=== PATIENT | male | born 1995 | race Caucasian/White ===

== ENCOUNTER 2024-08-23 19:40 | Observation (INO) | payer OTHER ==
--- NOTE | 2024-08-23 19:57 | ED ---
General Adult HPI - General Source: patient, family, EMS, RN notes reviewed Mode of arrival: EMS Limitations: altered mental status <Diana Subramanian - Last Filed: 08/23/24 23:11> <Cher Moe - Last Filed: 08/29/24 19:47> - General Chief complaint: Altered Mental Status Stated complaint: AMS Time Seen by Provider: 08/23/24 19:56 - History of Present Illness Initial comments: This is a 28-year-old male with history of transgender reconstructive surgery and borderline personality disorder presenting to emergency department via EMS with concern of possible overdose. History was largely obtained from patient's at bedside due to patient being on cooperative with questioning. at bedside states that the patient was alone in the house between the hours of 10 AM and 1800 p.m. this afternoon. When arrived back to the house she was concerned that there was a trail of urine on the ground and on the couch where the patient was laying and is patient has a history of urinating himself while he is severely intoxicated. Patient does have a history of alcohol abuse and is currently on Vivitrol injection. Patient is denying suicidal homicidal ideations. not cooperative with questioning, stating, 'i just want to go home' (Diana Subramanian) - Related Data Home Medications Medication Instructions Recorded Confirmed ALPRAZolam [Xanax] 0.25 mg PO HS PRN 08/24/24 08/24/24 Eszopiclone [Lunesta] 3 mg PO HS 08/24/24 08/24/24 Minocycline [Minocin] 50 mg PO Q12HR 08/24/24 08/24/24 Naltrexone HCl [Revia] 50 mg PO DAILY 08/24/24 08/24/24 QUEtiapine [SEROquel] 100 mg PO DAILY 08/24/24 08/24/24 QUEtiapine [SEROquel] 200 mg PO HS 08/24/24 08/24/24 Testosterone Cypionate 100 mg IM FR 08/24/24 08/24/24 [Depo-Testosterone] cloNIDine HCL [Catapres] 0.1 mg PO DAILY 08/24/24 08/24/24 hydrOXYzine HCL [Atarax] 50 mg PO TID 08/24/24 08/24/24 lamoTRIgine [LaMICtal] 25 mg PO HS 08/24/24 08/24/24 traZODone HCL 150 mg PO HS 08/24/24 08/24/24 Allergies Allergy/AdvReac Type Severity Reaction Status Date / Time No Known Allergies Allergy Verified 08/24/24 11:47 Review of Systems ROS Other: All systems not noted in ROS Statement are negative. <Diana Subramanian - Last Filed: 08/23/24 23:11> ROS Other: All systems not noted in ROS Statement are negative. <Cher Moe - Last Filed: 08/29/24 19:47> ROS Statement: Those systems with pertinent positive or pertinent negative responses have been documented in the HPI. General Exam Limitations: altered mental status General appearance: alert, appears intoxicated Head exam: Present: atraumatic, normocephalic, normal inspection Eye exam: Present: normal appearance, PERRL, EOMI. Absent: scleral icterus, con junctival injection, periorbital swelling Respiratory exam: Present: normal lung sounds bilaterally. Absent: respiratory distress, wheezes, rales, rhonchi, stridor Cardiovascular Exam: Present: regular rate, normal rhythm, normal heart sounds. Absent: systolic murmur, diastolic murmur, rubs, gallop, clicks GI/Abdominal exam: Present: soft, normal bowel sounds. Absent: distended, tenderness, guarding, rebound, rigid Extremities exam: Present: normal inspection, full ROM, normal capillary refill. Absent: tenderness, pedal edema, joint swelling, calf tenderness Back exam: Present: normal inspection Psychiatric exam: Present: anxious, flat affect. Absent: normal affect, normal mood <Diana Subramanian - Last Filed: 08/23/24 23:11> Course Vital Signs 08/23/24 08/24/24 19:43 00:34 Temperature 97.6 F Pulse Rate 112 H 128 H Respiratory 18 18 Rate Blood Pressure 150/104 151/107 O2 Sat by Pulse 98 100 Oximetry Medical Decision Making - Lab Data Result diagrams: 08/23/24 21:26 08/23/24 21:26 <Diana Subramanian - Last Filed: 08/23/24 23:11> - Lab Data Result diagrams: 08/23/24 21:26 08/23/24 21:26 <Cher Moe - Last Filed: 08/29/24 19:47> - Medical Decision Making Was pt. sent in by a medical professional or institution (, [facility], [facility], urgent care, hospital, or penitentiary...) When possible be specific @ -No Did you speak to anyone other than the patient for history (EMS, parent, family, police, friend...)? What history was obtained from this source @ -Spoke to patient's mother at bedside states that patient has a history of alcohol abuse and she is concerned for his wellbeing. Did you review nursing and triage notes (agree or disagree)? Why? @ -I reviewed and agree with nursing and triage notes Were old charts reviewed (outside hosp., previous admission, EMS record, old EKG, old radiological studies, urgent care reports/EKG's, penitentiary records)? Report findings @ -No old charts were reviewed Differential Diagnosis (chest pain, altered mental status, abdominal pain women, abdominal pain men, vaginal bleeding, weakness, fever, dyspnea, syncope, headache, dizziness, GI bleed, back pain, seizure, CVA, palpatations, mental h ealth, musculoskeletal)? @ -Differential Altered Mental Status: Hypoglycemia, DKA, hypercapnia, ETOH, overdose, CO poisoning, trauma, myxedema coma, HTN encephalopathy, infection, encephalitis, psychosis, intercranial hemorrhage, hepatic encephalopathy, meningitis, CVA, this is not meant to be an all-inclusive list EKG interpreted by me (3pts min.). @ -None X-rays interpreted by me (1pt min.). @ -None done CT interpreted by me (1pt min.). @ -None done U/S interpreted by me (1pt. min.). @ -None done What testing was considered but not performed or refused? (CT, X-rays, U/S, labs)? Why? @ -None What meds were considered but not given or refused? Why? @ -None Did you discuss the management of the patient with other professionals (professionals i.e. [facility], [facility], lab, RT, psych nurse, director of social work, criminal justice lawyer, teacher, president and chief commercial officer, director of casework department)? Give summary @ -Spoke with Kristin with [facility] was agreed to admit the patient. Was smoking cessation discussed for >3mins.? @ -No Was critical care preformed (if so, how long)? @ -No Were there social determinants of health that impacted care today? How? (Homelessness, low income, unemployed, alcoholism, drug addiction, tra nsportation, low edu. Level, literacy, decrease access to med. care, fci, rehab)? @ -No Was there de-escalation of care discussed even if they declined (Discuss DNR or withdrawal of care, Hospice)? DNR status @ -No What co-morbidities impacted this encounter? (DM, HTN, Smoking, COPD, CAD, Cancer, CVA, ARF, Chemo, Hep., AIDS, mental health diagnosis, sleep apnea, morbid obesity)? @ -None Was patient admitted / discharged? Hospital course, mention meds given and route, prescriptions, significant lab abnormalities, going to OR and other pertinent info. @ -Admitted. 28-year male presenting to the emergency department via EMS with at bedside with concerns for altered mental status. Initially patient is noncooperative and appears intoxicated continuously stating that he just wants to go home. Laboratory testing including CBC and CMP unremarkable. Salicylates and acetaminophen toxicology undetected. Patient serum alcohol level was elevated at 371 correlating to the time till sober and 15 hours. On reevaluation after laboratory testing has resulted patient is cooperative stating that he does have a history of alcohol abuse and recently had a relapse. He states that he drank approximately a pint today. Denies drug use. States that he follows with a psychiatrist and has a safety plan at home. Will be admitted to internal medicine with psychiatry on consult. [facility] protocol placed. Case discussed with Dr. Moe Undiagnosed new problem with uncertain prognosis? @ -No Drug Therapy requiring intensive monitoring for toxicity (Heparin, Nitro, Insulin, Cardizem)? @ -No Were any procedures done? @ -No Diagnosis/symptom? @ -Alcohol abuse/alcohol intoxication Acute, or Chronic, or Acute on Chronic? @ -Acute Uncomplicated (without systemic symptoms) or Complicated (systemic symptoms)? @ -Complicated Side effects of treatment? @ -No Exacerbation, Progression, or Severe Exacerbation? @ -No Poses a threat to life or bodily function? How? (Chest pain, USA, SC, pneumonia, PE, COPD, DKA, ARF, appy, cholecystitis, CVA, Diverticulitis, Homicidal, Suicidal, threat to staff... and all critical care pts) @ -No (Diana Subramanian) - Lab Data Lab Results 08/23/24 08/23/24 08/23/24 Range/Units 21:26 21:26 22:47 WBC 6.09 (4.50-10.00) 10*3/uL RBC 5.32 (4.40-5.60) 10*6/uL Hgb 16.1 (13.0-17.0) g/dL Hct 45.8 (39.6-50.0) % MCV 86.1 (80.0-97.0) fL MCH 30.3 (27.0-32.0) pg MCHC 35.2 (32.0-37.0) g/dL Plt Count 200 (140-440) 10*3/uL MPV 10.1 (9.5-12.2) fL Immature Gran % (Auto) 3.0 % Neutrophils % 39.7 % Lymphocytes % 48.3 % Monocytes % 5.9 % Eosinophils % 2.0 % Basophils % 1.1 % Immature Gran # 0.18 H (0.00-0.04) 10*3/uL Neutrophils # 2.42 (1.80-7.70) 10*3/uL Lymphocytes # 2.94 (0.90-5.00) 10*3/uL Monocytes # 0.36 (0.20-1.00) 10*3/uL Eosinophils # 0.12 (0.04-0.35) 10*3/uL Basophils # 0.07 (0.00-0.10) 10*3/uL Sodium 145 (137-145) mmol/L Potassium 5.0 (3.5-5.1) mmol/L Chloride 108 H (98-107) mmol/L Carbon Dioxide 26 (22-30) mmol/L Anion Gap 11 mmol/L BUN 18 (9-20) mg/dL Creatinine 0.82 (0.66-1.25) mg/dL Est GFR (CKD-EPI)AfAm >90 (>60 ml/min/1.73 sqM) Est GFR (CKD-EPI)NonAf >90 (>60 ml/min/1.73 sqM) Glucose 103 H (74-99) mg/dL Calcium 8.5 (8.4-10.2) mg/dL Magnesium 2.5 H (1.6-2.3) mg/dL Total Bilirubin 0.6 (0.2-1.3) mg/dL AST 60 H (17-59) U/L ALT 63 H (4-49) U/L Alkaline Phosphatase 58 (38-126) U/L Total Protein 8.0 (6.3-8.2) g/dL Albumin 4.5 (3.5-5.0) g/dL Urine Color Colorless Urine Appearance Clear (Clear) Urine pH 7.0 (5.0-8.0) Ur Specific Newell 1.008 (1.001-1.035) Urine Protein Negative (Negative) Urine Glucose (UA) Negative (Negative) Urine Ketones Negative (Negative) Urine Blood Negative (Negative) Urine Nitrite Negative (Negative) Urine Bilirubin Negative (Negative) Urine Urobilinogen <2.0 (<2.0) mg/dL Ur Leukocyte Esterase Negative (Negative) Salicylates <1.0 mg/dL Urine Opiates Screen Not Detected (NotDetected) Ur Oxycodone Screen Not Detected (NotDetected) Urine Methadone Screen Not Detected (NotDetected) Acetaminophen <10.0 ug/mL Ur Barbiturates Screen Not Detected (NotDetected) U Tricyclic Antidepress Not Detected (NotDetected) Ur Phencyclidine Scrn Not Detected (NotDetected) Ur Amphetamines Screen Not Detected (NotDetected) U Methamphetamines Scrn Not Detected (NotDetected) U Benzodiazepines Scrn Not Detected (NotDetected) Urine Cocaine Screen Not Detected (NotDetected) U Marijuana (THC) Screen Not Detected (NotDetected) Serum Alcohol 371 H* mg/dL Disposition Decision to Admit Reason: Admit from EC Decision Date: 08/23/24 Decision Time: 23:01 <Diana Subramanian - Last Filed: 08/23/24 23:11> <Cher Moe - Last Filed: 08/29/24 19:47> Clinical Impression: Alcohol abuse, Alcohol intoxication Disposition: ADMITTED IP TO THIS [facility] Condition: Stable
[2024-08-23 21:37] LABS: Basophils # (A) 0.07 10*3/uL (0.00-0.10); Basophils % (A) 1.1 %; Eosinophils # (A) 0.12 10*3/uL (0.04-0.35); HCT 45.8 % (39.6-50.0); HGB 16.1 g/dL (13.0-17.0); Lymphocytes # (A) 2.94 10*3/uL (0.90-5.00); Lymphocytes % (A) 48.3 %; MCH 30.3 pg (27.0-32.0); MCHC 35.2 g/dL (32.0-37.0); MCV 86.1 fL (80.0-97.0); Mean Platelet Volume 10.1 fL (9.5-12.2); Monocytes # (A) 0.36 10*3/uL (0.20-1.00); Monocytes % (A) 5.9 %; Neutrophils # (A) 2.42 10*3/uL (1.80-7.70); Neutrophils % (A) 39.7 %; Platelet Count 200 10*3/uL (140-440); RBC 5.32 10*6/uL (4.40-5.60); RDW 12.8 % (11.5-14.5); WBC 6.09 10*3/uL (4.50-10.00)
[2024-08-23 22:06] LABS: ALT 63 U/L (4-49); AST 60 U/L (17-59); Acetaminophen <10.0 ug/mL; African American GFR (CKD) >90 (>60 ml/min/1.73 sqM); Albumin 4.5 g/dL (3.5-5.0); Alkaline Phosphatase 58 U/L (38-126); Anion Gap 11 mmol/L; Blood Urea Nitrogen 18 mg/dL (9-20); Calcium 8.5 mg/dL (8.4-10.2); Carbon Dioxide 26 mmol/L (22-30); Chloride 108 mmol/L (98-107); Glucose 103 mg/dL (74-99); Magnesium 2.5 mg/dL (1.6-2.3); Non-African American GFR(CKD) >90 (>60 ml/min/1.73 sqM); Salicylate <1.0 mg/dL; Sodium 145 mmol/L (137-145); Total Bilirubin 0.6 mg/dL (0.2-1.3)
[2024-08-23 22:33] LABS: Alcohol 371 mg/dL
[2024-08-23] MEDS ORDERED: IBUPROFEN 400 MG TAB PO PRN (23:01)
[2024-08-23] MEDS ORDERED: ACETAMINOPHEN TAB 325 MG TAB PO PRN (23:01)
[2024-08-23] MEDS ORDERED: NALOXONE 0.4 MG/ML 1 ML VIAL IV PRN (23:01)
[2024-08-23] MEDS ORDERED: chlordiazePOXIDE 25 MG CAP PO PRN ×3 (23:04)
[2024-08-23] MEDS ORDERED: LORazepam 2 MG/ML INJ IV PRN (23:04)
[2024-08-23 23:23] LABS: Appearance,Urine Clear (Clear); Bilirubin,Urine Negative (Negative); Blood,Urine Negative (Negative); Color,Urine Colorless; Glucose,Urine (UA) Negative (Negative); Ketones,Urine Negative (Negative); Leukocyte Esterase,Urine Negative (Negative); Nitrite,Urine Negative (Negative); Protein,Urine Negative (Negative); Specific Gravity,Urine 1.008 (1.001-1.035); Urobilinogen,Urine <2.0 mg/dL (<2.0)
[2024-08-23 23:34] LABS: Amphetamine Screen,Urine Not Detected (NotDetected); Barbiturate Screen,Urine Not Detected (NotDetected); Benzodiazepines Screen,Urine Not Detected (NotDetected); Cocaine Screen,Urine Not Detected (NotDetected); Methadone Screen, Urine Not Detected (NotDetected); Opiate Screen,Urine Not Detected (NotDetected); Oxycodone Screen, Urine Not Detected (NotDetected); Phencyclidine Screen,Urine Not Detected (NotDetected); Tricyclic Antidepressant,Urine Not Detected (NotDetected); Urn Cannabinoid Scrn Not Detected (NotDetected)
[2024-08-24 07:36] VITALS: RESP 16
[2024-08-24] MEDS: chlordiazePOXIDE 25 MG CAP PO PRN (08:03)
[2024-08-24] MEDS ORDERED: LORazepam 1 MG/0.5 ML VIAL IV PRN (08:10)
[2024-08-24] MEDS ORDERED: LORazepam 0.5 MG TAB PO PRN (11:37)
[2024-08-24] MEDS ORDERED: LORazepam 1 MG TAB PO PRN ×2 (11:37)
[2024-08-24] MEDS: THIAMINE 100 MG TAB PO SCH (11:57)
[2024-08-24] MEDS: LORazepam 1 MG TAB PO PRN (11:57)
--- NOTE | 2024-08-24 12:20 | P.DS ---
Providers Date of admission: 08/23/24 23:01 Attending physician: Andre White Consults: 08/23/24 23:01 Consult Physician Routine Consulting Provider: Psychiatry - [facility] Psychiatry Consult Reason/Comments: petition, sober @1655 Do you want consulting provider notified?: Yes, Notify in am Primary care physician: Stated None Hospital Course: 28-year-old present male was brought in by after he was found on the couch with urine on the ground. Patient was later found to be intoxicated with alcohol with serum alcohol level being 371. Patient is very cooperative able to provide me good history patient is sober for 63 days and he relapsed and started drinking yesterday and did drink heavily yesterday. Patient was petitioned by and psychiatry was consulted. Patient is willing to quit alcohol again patient has all the resources in the community. Patient is on Vivitrol as well. Patient has history of depression borderline personality disorder for which patient is on Lamictal and Seroquel. REVIEW OF SYSTEMS: All other systems are negative except those mentioned in the HPI PHYSICAL EXAMINATION: GENERAL: The patient is alert and oriented x3, not in any acute distress. Well developed, well nourished. HEENT: Pupils are round and equally reacting to light. EOMI. No scleral icterus. No conjunctival pallor. Normocephalic, atraumatic. No pharyngeal erythema. No thyromegaly. CARDIOVASCULAR: S1 and S2 present. No murmurs, rubs, or gallops. PULMONARY: Chest is clear to auscultation, no wheezing or crackles. ABDOMEN: Soft, nontender, nondistended, normoactive bowel sounds. No palpable organomegaly. MUSCULOSKELETAL: No joint swelling or deformity. EXTREMITIES: No cyanosis, clubbing, or pedal edema. NEUROLOGICAL: Gross neurological examination did not reveal any focal deficits. SKIN: No rashes. Assessment and plan -Alcohol intoxication patient is clinically sober at this time will be discharged if cleared by psychiatry - Alcohol abuse counseling was provided and patient is willing to quit alcohol again - Mild alcoholic hepatitis expected to improve with cessation of alcohol - Borderline personality disorder/anxiety/depression patient will be resumed on his home medications for these medical problems If cleared by psychiatry patient will be discharged today Patient Condition at Discharge: Stable Plan - Discharge Summary Discharge Rx Participant: No New Discharge Prescriptions: Continue traZODone HCL 150 mg PO HS hydrOXYzine HCL [Atarax] 50 mg PO TID cloNIDine HCL [Catapres] 0.1 mg PO DAILY QUEtiapine [SEROquel] 100 mg PO DAILY Naltrexone HCl [Revia] 50 mg PO DAILY Minocycline [Minocin] 50 mg PO Q12HR lamoTRIgine [LaMICtal] 25 mg PO HS QUEtiapine [SEROquel] 200 mg PO HS Eszopiclone [Lunesta] 3 mg PO HS ALPRAZolam [Xanax] 0.25 mg PO HS PRN PRN Reason: Anxiety Testosterone Cypionate [Depo-Testosterone] 100 mg IM FR Discharge Medication List ALPRAZolam [Xanax] 0.25 mg PO HS PRN 08/24/24 [History] Eszopiclone [Lunesta] 3 mg PO HS 08/24/24 [History] Minocycline [Minocin] 50 mg PO Q12HR 08/24/24 [History] Naltrexone HCl [Revia] 50 mg PO DAILY 08/24/24 [History] QUEtiapine [SEROquel] 100 mg PO DAILY 08/24/24 [History] QUEtiapine [SEROquel] 200 mg PO HS 08/24/24 [History] Testosterone Cypionate [Depo-Testosterone] 100 mg IM FR 08/24/24 [History] cloNIDine HCL [Catapres] 0.1 mg PO DAILY 08/24/24 [History] hydrOXYzine HCL [Atarax] 50 mg PO TID 08/24/24 [History] lamoTRIgine [LaMICtal] 25 mg PO HS 08/24/24 [History] traZODone HCL 150 mg PO HS 08/24/24 [History] Follow up Appointment(s)/Referral(s): Lori Woody MD [STAFF PHYSICIAN] - 1 Week Discharge Disposition: HOME SELF-CARE
--- NOTE | 2024-08-24 12:20 | P.HPIM ---
History of Present Illness 28-year-old present male was brought in by after he was found on the couch with urine on the ground. Patient was later found to be intoxicated with alcohol with serum alcohol level being 371. Patient is very cooperative able to provide me good history patient is sober for 63 days and he relapsed and started drinking yesterday and did drink heavily yesterday. Patient was petitioned by and psychiatry was consulted. Patient is willing to quit alcohol again patient has all the resources in the community. Patient is on Vivitrol as well. Patient has history of depression borderline personality disorder for which patient is on Lamictal and Seroquel. REVIEW OF SYSTEMS: All other systems are negative except those mentioned in the HPI PHYSICAL EXAMINATION: GENERAL: The patient is alert and oriented x3, not in any acute distress. Well developed, well nourished. HEENT: Pupils are round and equally reacting to light. EOMI. No scleral icterus. No conjunctival pallor. Normocephalic, atraumatic. No pharyngeal erythema. No thyromegaly. CARDIOVASCULAR: S1 and S2 present. No murmurs, rubs, or gallops. PULMONARY: Chest is clear to auscultation, no wheezing or crackles. ABDOMEN: Soft, nontender, nondistended, normoactive bowel sounds. No palpable organomegaly. MUSCULOSKELETAL: No joint swelling or deformity. EXTREMITIES: No cyanosis, clubbing, or pedal edema. NEUROLOGICAL: Gross neurological examination did not reveal any focal deficits. SKIN: No rashes. Assessment and plan -Alcohol intoxication patient is clinically sober at this time will be discharged if cleared by psychiatry - Alcohol abuse counseling was provided and patient is willing to quit alcohol again - Mild alcoholic hepatitis expected to improve with cessation of alcohol - Borderline personality disorder/anxiety/depression patient will be resumed on his home medications for these medical problems If cleared by psychiatry patient will be discharged today Past Medical History Past Medical History: Hypertension History of Any Multi-Drug Resistant Organisms: None Reported Past Surgical History: Breast Surgery Past Anesthesia/Blood Transfusion Reactions: No Reported Reaction Past Psychological History: Anxiety, Depression Additional Psychological History / Comment(s): Borderline personality Disorder Smoking Status: Never smoker, Unknown if ever smoked Past Alcohol Use History: Abuse Additional Past Alcohol Use History / Comment(s): Patient states this was a relapse. Patient states last drink before today was months ago. Past Drug Use History: Marijuana Additional Drug Use History / Comment(s): Patient states he smokes marijuana with his occasionally. Medications and Allergies Home Medications Medication Instructions Recorded Confirmed Type ALPRAZolam [Xanax] 0.25 mg PO HS PRN 08/24/24 08/24/24 History Eszopiclone [Lunesta] 3 mg PO HS 08/24/24 08/24/24 History Minocycline [Minocin] 50 mg PO Q12HR 08/24/24 08/24/24 History Naltrexone HCl [Revia] 50 mg PO DAILY 08/24/24 08/24/24 History QUEtiapine [SEROquel] 100 mg PO DAILY 08/24/24 08/24/24 History QUEtiapine [SEROquel] 200 mg PO HS 08/24/24 08/24/24 History Testosterone Cypionate 100 mg IM FR 08/24/24 08/24/24 History [Depo-Testosterone] cloNIDine HCL [Catapres] 0.1 mg PO DAILY 08/24/24 08/24/24 History hydrOXYzine HCL [Atarax] 50 mg PO TID 08/24/24 08/24/24 History lamoTRIgine [LaMICtal] 25 mg PO HS 08/24/24 08/24/24 History traZODone HCL 150 mg PO HS 08/24/24 08/24/24 History Allergies Allergy/AdvReac Type Severity Reaction Status Date / Time No Known Allergies Allergy Verified 08/24/24 11:47 Physical Exam Vitals: Vital Signs Temp Pulse Pulse Resp BP BP Pulse Ox 08/24/24 07:00 98.1 F 118 H 16 124/74 98 08/24/24 01:08 97.8 F 112 H 18 139/90 100 08/24/24 00:34 128 H 18 151/107 100 08/23/24 19:43 97.6 F 112 H 18 150/104 98 Intake and Output 08/23/24 08/24/24 08/24/24 22:59 06:59 14:59 Other: # Voids 1 Weight 58.967 kg 58.967 kg Results CBC & Chem 7: 08/23/24 21:26 08/23/24 21:26 Labs: Abnormal Lab Results - Last 24 Hours (Table) 04/11/25 04/11/25 Range/Units 21:26 21:26 Immature Gran # 0.18 H (0.00-0.04) 10*3/uL Chloride 108 H (98-107) mmol/L Glucose 103 H (74-99) mg/dL Magnesium 2.5 H (1.6-2.3) mg/dL AST 60 H (17-59) U/L ALT 63 H (4-49) U/L Serum Alcohol 371 H* mg/dL
[2024-08-24 14:48] VITALS: BP 155/97; PULSE 120; TEMP 98.7
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
[2024-08-24] MEDS ORDERED: hydrOXYzine HCL 25 MG TAB PO SCH (16:00)
[2024-08-24] MEDS ORDERED: lamoTRIgine 25 MG TAB PO SCH (21:00)
[2024-08-24] MEDS ORDERED: QUEtiapine 200 MG TAB PO SCH (21:00)
[2024-08-24] MEDS ORDERED: TEMAZEPAM 15 MG CAP PO SCH (21:00)
[2024-08-25] MEDS ORDERED: QUEtiapine 100 MG TAB PO SCH (09:00)
== END 2024-08-24 15:48 | disposition home or self-care (01) ==
LOC: EC 19:40 → 6NMEDSUR 23:01
PROVIDERS: ADMIT Hospitalist; ATTEND Hospitalist
DX: F10.129 Alcohol abuse with intoxication, unspecified (principal); K70.10 Alcoholic hepatitis without ascites; F43.23 Adjustment disorder with mixed anxiety and depressed mood; F60.3 Borderline personality disorder; F31.9 Bipolar disorder, unspecified; F64.0 Transsexualism; Z79.899 Other long term (current) drug therapy; Y90.8 Blood alcohol level of 240 mg/100 ml or more; Z71.41 Alcohol abuse counseling and surveillance of alcoholic; Z74.3 Need for continuous supervision
CPT/HCPCS: 99285; 36415; 80053; 83735; 85025; 81003; 80306; 80143; 80320; 80179; G0378 ×2

== ENCOUNTER 2024-12-08 14:42 | Observation (INO) | payer OTHER ==
--- NOTE | 2024-12-08 15:43 | ED ---
Psych HPI - General Chief Complaint: Psychiatric Symptoms Stated Complaint: Psych Eval Time Seen by Provider: 12/08/24 15:40 Source: patient, RN notes reviewed Mode of arrival: ambulatory - History of Present Illness Initial Comments: 29-year-old male presenting with for mental health evaluation. reports patient has been inconsistently taking his psychiatric medications over the past several months. She reports he has a history of psychosis. Patient is also transgender and takes testosterone which she reports he has been taking inconsistently, causing mood swings. Reports patient has had aggressive outbursts lately. Also reports patient has been making suicidal comments. When asked directly, patient denies suicidal or homicidal ideation. - Related Data Home Medications Medication Instructions Recorded Confirmed No Known Home Medications 12/08/24 12/08/24 Allergies Allergy/AdvReac Type Severity Reaction Status Date / Time No Known Allergies Allergy Verified 12/08/24 16:11 Review of Systems ROS Statement: Those systems with pertinent positive or pertinent negative responses have been documented in the HPI. ROS Other: All systems not noted in ROS Statement are negative. Past Medical History Past Medical History: Hypertension History of Any Multi-Drug Resistant Organisms: None Reported Past Surgical History: Breast Surgery Past Anesthesia/Blood Transfusion Reactions: No Reported Reaction Past Psychological History: Anxiety, Depression Smoking Status: Never smoker, Unknown if ever smoked Past Alcohol Use History: Abuse Past Drug Use History: Marijuana General Exam Limitations: no limitations General appearance: alert, in no apparent distress Head exam: Present: atraumatic, normocephalic, normal inspection Eye exam: Present: normal appearance, PERRL, EOMI. Absent: scleral icterus, conjunctival injection, periorbital swelling Neurological exam: Present: alert, oriented X3 Psychiatric exam: Present: normal affect, normal mood. Absent: homicidal ideation, suicidal ideation Skin exam: Present: warm, dry, intact, normal color. Absent: rash Course Vital Signs 12/08/24 14:57 Temperature 98 F Pulse Rate 132 H Respiratory 20 Rate Blood Pressure 138/91 O2 Sat by Pulse 96 Oximetry Medical Decision Making - Medical Decision Making Was pt. sent in by a medical professional or institution (, RENE, PLASTICS AND COMPOSITES INSPECTOR, urgent care, hospital, or senior living...) When possible be specific @ -No Did you speak to anyone other than the patient for history (EMS, parent, family, police, friend...)? What history was obtained from this source @ - provided most of history Did you review nursing and triage notes (agree or disagree)? Why? @ -I reviewed and agree with nursing and triage notes Were old charts reviewed (outside hosp., previous admission, EMS record, old EKG, old radiological studies, urgent care reports/EKG's, senior living records)? Report findings @ -No old charts were reviewed Differential Diagnosis (chest pain, altered mental status, abdominal pain women, abdominal pain men, vaginal bleeding, weakness, fever, dyspnea, syncope, headache, dizziness, GI bleed, back pain, seizure, CVA, palpatations, mental health, musculoskeletal)? @ -Differential Mental Health Depression, anxiety, bipolar, psychosis, schizophrenia, borderline personality, situational depression, adjustment disorder, behavioral disorder, brain tumor, malingering, substance abuse, encephalopathy, medication reaction, dementia, hypothyroidism, degenerative neurologic disorder, lupus.... This is not meant to be all-inclusive list EKG interpreted by me (3pts min.). @ -None X-rays interpreted by me (1pt min.). @ -None done CT interpreted by me (1pt min.). @ -None done U/S interpreted by me (1pt. min.). @ -None done What testing was considered but not performed or refused? (CT, X-rays, U/S, labs)? Why? @ -None What meds were considered but not given or refused? Why? @ -None Did you discuss the management of the patient with other professionals (professionals i.e. , PA, PLASTICS AND COMPOSITES INSPECTOR, lab, RT, psych nurse, social psychologist, grain miller helper, teacher, tactical debriefer officer, case operator)? Give summary @ -I spoke with Paddy from [facility], [place] who accepts admission for alcohol intoxication Was smoking cessation discussed for >3mins.? @ -No Was critical care preformed (if so, how long)? @ -No Were there social determinants of health that impacted care today? How? (Homelessness, low income, unemployed, alcoholism, drug addiction, transportation, low edu. Level, literacy, decrease access to med. care, shelter, rehab)? @ -No Was there de-escalation of care discussed even if they declined (Discuss DNR or withdrawal of care, Hospice)? DNR status @ -No What co-morbidities impacted this encounter? (DM, HTN, Smoking, COPD, CAD, Cancer, CVA, ARF, Chemo, Hep., AIDS, mental health diagnosis, sleep apnea, morbid obesity)? @ -None Was patient admitted / discharged? Hospital course, mention meds given and route, prescriptions, significant lab abnormalities, going to OR and other pertinent info. @ - admitted. 29-year-old male presenting with for mental health evaluation. reports patient has been taking psychiatric medications and testosterone inconsistently causing mood swings and violent outbursts. Patient denies current suicidal or homicidal ideation. Serum alcohol is 402. Patient will be admitted to medicine for alcohol intoxication and will undergo EPS evaluation after clinically sober. Will be clinically sober at 0900 tomorrow. Case was discussed with my ED attending Dr. Metzger. Undiagnosed new problem with uncertain prognosis? @ -No Drug Therapy requiring intensive monitoring for toxicity (Heparin, Nitro, Insulin, Cardizem)? @ -No Were any procedures done? @ -No Diagnosis/symptom? @ -Alcohol intoxication Acute, or Chronic, or Acute on Chronic? @ -Acute Uncomplicated (without systemic symptoms) or Complicated (systemic symptoms)? @ -Complicated Side effects of treatment? @ -No Exacerbation, Progression, or Severe Exacerbation? @ -No Poses a threat to life or bodily function? How? (Chest pain, [place], [place], pneumonia, PE, COPD, DKA, ARF, appy, cholecystitis, CVA, Diverticulitis, Homicidal, Suicidal, threat to staff... and all critical care pts) @ -Yes - Lab Data Lab Results 12/08/24 12/08/24 Range/Units 16:00 16:00 Urine Opiates Screen Not Detected (NotDetected) Ur Oxycodone Screen Not Detected (NotDetected) Urine Methadone Screen Not Detected (NotDetected) Ur Barbiturates Screen Not Detected (NotDetected) U Tricyclic Antidepress Not Detected (NotDetected) Ur Phencyclidine Scrn Not Detected (NotDetected) Ur Amphetamines Screen Not Detected (NotDetected) U Methamphetamines Scrn Not Detected (NotDetected) U Benzodiazepines Scrn Not Detected (NotDetected) Urine Cocaine Screen Not Detected (NotDetected) U Marijuana (THC) Screen Not Detected (NotDetected) Serum Alcohol 402 H* mg/dL Disposition Clinical Impression: Alcohol intoxication Disposition: ADMITTED IP TO THIS HOSP Referrals: None,Stated [Primary Care Provider] - 1-2 days Time of Disposition: 19:13
[2024-12-08 16:33] LABS: Barbiturate Screen,Urine Not Detected (NotDetected); Benzodiazepines Screen,Urine Not Detected (NotDetected); Opiate Screen,Urine Not Detected (NotDetected); Oxycodone Screen, Urine Not Detected (NotDetected); Phencyclidine Screen,Urine Not Detected (NotDetected); Tricyclic Antidepressant,Urine Not Detected (NotDetected); Urn Cannabinoid Scrn Not Detected (NotDetected)
[2024-12-08] MEDS ORDERED: NALOXONE 0.4 MG/ML 1 ML VIAL IV PRN (19:14)
[2024-12-08] MEDS ORDERED: IBUPROFEN 400 MG TAB PO PRN (19:14)
[2024-12-08 19:35] LABS: ALT 43 U/L (4-49); AST 58 U/L (17-59); African American GFR (CKD) >90 (>60 ml/min/1.73 sqM); Albumin 5.1 g/dL (3.5-5.0); Alkaline Phosphatase 61 U/L (38-126); Anion Gap 20 mmol/L; Blood Urea Nitrogen 11 mg/dL (9-20); Calcium 9.6 mg/dL (8.4-10.2); Carbon Dioxide 16 mmol/L (22-30); Chloride 110 mmol/L (98-107); Glucose 125 mg/dL (74-99); Non-African American GFR(CKD) >90 (>60 ml/min/1.73 sqM); Potassium 4.1 mmol/L (3.5-5.1); Sodium 146 mmol/L (137-145); Total Protein 8.3 g/dL (6.3-8.2)
--- NOTE | 2024-12-08 19:55 | P.HPIM ---
History of Present Illness H&P Date: 12/08/24 Chief Complaint: dorothy in by his 29-year-old male presented with his for mental health evaluation. Patient has a history of psychosis for which he takes medications but has been inconsistent with taking them over the past several months. Patient also has a history of transgender identity and takes testosterone but has been inconsistent with this medication, resulting in mood swings. Patient has had aggressive outbursts lately and has been making suicidal ideation comments, though he denies any current suicidal ideation. Patient is a recovering alcoholic who experienced a recent relapse after achieving 83 days of sobriety. Blood alcohol level was elevated at 402 on presentation. Patient is a recovering alcoholic who recently relapsed after 83 days of so briety. Patient acknowledges this was a complete relapse and states he will not lie about his alcohol use. PMHx History of psychosis High blood pressure meds Clonidine 0.1 mg for high blood pressure Xanax 0.25 mg (prescribed at home) Eszopiclone 3 mg for sleep Zolpidem 15 mg for sleep (patient takes at home) Review of systems All systems reviewed with pertinent positive negatives as per HPI on exam Constitutional: No acute distress, conversant, pleasant Eyes: Anicteric sclerae, moist conjunctiva, Pupils equal round reactive to light ENMT: NC/AT Oropharynx clear, no erythema, or exudates Neck: Supple, no masses, or JVD No carotid bruits No thyromegaly Lungs: Clear to auscultation Clear to percussion Normal respiratory effort, no accessory muscle use Cardiovascular: Heart regular in rate and rhythm, No murmurs, gallops, or rubs No peripheral edema Abdominal: Soft Nontender, no guarding, rebound or rigidity Abdomen moving with respiration Extremities: No digital cyanosis No clubbing Pedal pulses intact and symmetrical Radial pulses intact and symmetrical No calf tenderness Psychiatric: Alert and oriented to person, place and time Appropriate affect fair judgement Neuro Muscles Strength 5/5 in all 4 extremities Sensation to light touch grossly present throughout Cranial nerves II-XII grossly intact Past Medical History Past Medical History: Hypertension History of Any Multi-Drug Resistant Organisms: None Reported Past Surgical History: Breast Surgery Past Anesthesia/Blood Transfusion Reactions: No Reported Reaction Past Psychological History: Anxiety, Depression Smoking Status: Never smoker, Unknown if ever smoked Past Alcohol Use History: Abuse Past Drug Use History: Marijuana Medications and Allergies Home Medications Medication Instructions Recorded Confirmed Type No Known Home Medications 12/08/24 12/08/24 History Allergies Allergy/AdvReac Type Severity Reaction Status Date / Time No Known Allergies Allergy Verified 12/08/24 16:11 Physical Exam Vitals: Vital Signs Temp Pulse Resp BP Pulse Ox 12/08/24 14:57 98 F 132 H 20 138/91 96 Intake and Output 12/08/24 12/08/24 12/08/24 06:59 14:59 22:59 Other: Weight 63.503 kg Results CBC & Chem 7: 12/08/24 16:00 Labs: Abnormal Lab Results - Last 24 Hours (Table) 12/08/24 Range/Units 16:00 Serum Alcohol 402 H* mg/dL Assessment and Plan Assessment: 29-year-old male with history of psychosis and transgender identity presenting for mental health evaluation in the setting of medication non-compliance and recent alcohol relapse. 1. Mental health evaluation with medication non-compliance: - History of psychosis with inconsistent medication adherence - Recent aggressive outbursts and suicidal ideation comments - Plan: a) Continue psychiatric medications as prescribed b) Address medication compliance c) Monitor for suicidal ideation 2. Alcohol use disorder with recent relapse: - Elevated blood alcohol level of 402 - Recent relapse after 83 days of sobriety - Plan: a) Monitor for alcohol withdrawal symptoms b) Provide Ativan for anxiety and potential withdrawal c) Alcohol counseling and support 3. Anxiety and sleep disturbance: - Patient experiencing anxiety and restlessness - Difficulty sleeping without medications - Plan: a) Ativan for anxiety management b) Ambien 10 mg for sleep (patient requested, takes 15 mg at home) 4. Hypertension: - On clonidine 0.1 mg - Plan: Continue current antihypertensive therapy 5. Transgender care: - History of inconsistent testosterone therapy contributing to mood swings - Plan: Address hormone therapy compliance and coordination with appropriate specialists DVT PPX SCD 2.2 gi bleeding
[2024-12-09] MEDS ORDERED: LORazepam 1 MG TAB PO PRN (02:29)
[2024-12-09] MEDS ORDERED: LORazepam 1 MG/0.5 ML VIAL IV PRN ×3 (02:29)
[2024-12-09] MEDS ORDERED: LORazepam 0.5 MG TAB PO PRN (02:29)
[2024-12-09] MEDS: ZOLPIDEM 5 MG TAB PO PRN (03:01)
[2024-12-09 03:19] LABS: Basophils # (A) 0.05 10*3/uL (0.00-0.10); Basophils % (A) 0.7 %; Eosinophils # (A) 0.04 10*3/uL (0.04-0.35); Eosinophils % (A) 0.6 %; HCT 42.7 % (39.6-50.0); HGB 15.6 g/dL (13.0-17.0); Lymphocytes # (A) 2.40 10*3/uL (0.90-5.00); Lymphocytes % (A) 35.0 %; MCH 33.3 pg (27.0-32.0); MCHC 36.5 g/dL (32.0-37.0); MCV 91.2 fL (80.0-97.0); Monocytes # (A) 0.69 10*3/uL (0.20-1.00); Monocytes % (A) 10.1 %; Neutrophils # (A) 3.65 10*3/uL (1.80-7.70); Neutrophils % (A) 53.3 %; Platelet Count 211 10*3/uL (140-440); RBC 4.68 10*6/uL (4.40-5.60); RDW 14.6 % (11.5-14.5); WBC 6.85 10*3/uL (4.50-10.00)
[2024-12-09] MEDS: SODIUM CHLORIDE 0.9% 1,000 ML IV SCH (03:20)
[2024-12-09] MEDS: LORazepam 1 MG TAB PO PRN (08:14)
[2024-12-09 09:45] LABS: African American GFR (CKD) >90 (>60 ml/min/1.73 sqM); Anion Gap 12 mmol/L; Blood Urea Nitrogen 12 mg/dL (9-20); Calcium 9.0 mg/dL (8.4-10.2); Carbon Dioxide 21 mmol/L (22-30); Chloride 104 mmol/L (98-107); Glucose 99 mg/dL (74-99); Magnesium 1.8 mg/dL (1.6-2.3); Non-African American GFR(CKD) >90 (>60 ml/min/1.73 sqM); Potassium 4.0 mmol/L (3.5-5.1); Sodium 137 mmol/L (137-145)
--- NOTE | 2024-12-09 11:29 | P.PN ---
Subjective Progress Note Date: 12/09/24 No new complaints today. No acute events overnight. Patient was sober at 0900, pending psychiatric evaluation due to petition. Gen: In NAD, non-toxic HEENT: normocephalic, atraumatic, hearing acuity is intant, mucous membranes moist CVS: perfusing all extremities well, no pitting edema, Respiratory: symmetric chest expansion, no accessory muscle use, GI: soft, NTTP, ND, : no suprapubic tenderness, no CVA tenderness MSK/Derm: no rashes, cyanosis Neuro: CN II-XII intact, no motor weakness, Hospital course: 29-year-old male with history of psychosis and transgender identity presenting for mental health evaluation in the setting of medication non-compliance and recent alcohol relapse. Psychiatry was consulted due to patient being petitioned by family member, pending evaluation to determine need for mental health unit placement. Assessment/plan: 1. Mental health evaluation with medication non-compliance: - History of psychosis with inconsistent medication adherence - Recent aggressive outbursts and suicidal ideation comments - Plan: a) Continue psychiatric medications as prescribed b) Address medication compliance c) Monitor for suicidal ideation 2. Alcohol use disorder with recent relapse: - Elevated blood alcohol level of 402 - Recent relapse after 83 days of sobriety - Plan: a) Monitor for alcohol withdrawal symptoms b) Provide Ativan for anxiety and potential withdrawal c) Alcohol counseling and support 3. Anxiety and sleep disturbance: - Patient experiencing anxiety and restlessness - Difficulty sleeping without medications - Plan: a) Ativan for anxiety management b) Ambien 10 mg for sleep (patient requested, takes 15 mg at home) 4. Hypertension: - On clonidine 0.1 mg - Plan: Continue current antihypertensive therapy 5. Transgender care: - History of inconsistent testosterone therapy contributing to mood swings - Plan: Address hormone therapy compliance and coordination with appropriate specialists DVT PPX SCD 2.2 gi bleeding Objective - Vital Signs Vital signs: Vital Signs Temp 98.8 F 12/09/24 07:31 Pulse 120 H 12/09/24 07:31 Resp 18 12/09/24 07:31 BP 128/92 12/09/24 07:31 Pulse Ox 97 12/09/24 07:31 FiO2 Intake & Output 12/08/24 12/09/24 12/09/24 18:59 06:59 18:59 Weight 63.503 kg - Labs CBC & Chem 7: 12/09/24 03:10 12/09/24 09:07 Labs: Abnormal Lab Results - Last 24 Hours (Table) 12/08/24 12/08/24 12/09/24 Range/Units 16:00 16:00 03:10 MCH 33.3 H (27.0-32.0) pg MPV 9.3 L (9.5-12.2) fL Sodium 146 H (137-145) mmol/L Chloride 110 H (98-107) mmol/L Carbon Dioxide 16 L (22-30) mmol/L Creatinine (0.66-1.25) mg/dL Glucose 125 H (74-99) mg/dL Total Protein 8.3 H (6.3-8.2) g/dL Albumin 5.1 H (3.5-5.0) g/dL Serum Alcohol 402 H* mg/dL 12/09/24 Range/Units 09:07 MCH (27.0-32.0) pg MPV (9.5-12.2) fL Sodium (137-145) mmol/L Chloride (98-107) mmol/L Carbon Dioxide 21 L (22-30) mmol/L Creatinine 0.64 L (0.66-1.25) mg/dL Glucose (74-99) mg/dL Total Protein (6.3-8.2) g/dL Albumin (3.5-5.0) g/dL Serum Alcohol mg/dL
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
--- NOTE | 2024-12-09 15:13 | P.DS ---
Providers Date of admission: 12/08/24 19:15 Expected date of discharge: 12/09/24 Attending physician: Hudson Zavala Consults: 12/09/24 11:09 Consult Physician Routine Consulting Provider: Bubba Gamble Consult Reason/Comments: petitioned Do you want consulting provider notified?: Yes Primary care physician: Stated None Hospital Course: Mental health evaluation with medication non-compliance: Alcohol use disorder with recent relapse: Anxiety and sleep disturbance: Hypertension: Transgender care: Gen: In NAD, non-toxic HEENT: normocephalic, atraumatic, hearing acuity is intant, mucous membranes moist CVS: perfusing all extremities well, no pitting edema, Respiratory: symmetric chest expansion, no accessory muscle use, GI: soft, NTTP, ND, : no suprapubic tenderness, no CVA tenderness MSK/Derm: no rashes, cyanosis Neuro: CN II-XII intact, no motor weakness, Hospital course: 29-year-old male with history of psychosis and transgender identity presenting for mental health evaluation in the setting of medication non-compliance and recent alcohol relapse. Psychiatry was consulted due to patient being petitioned by family member, pending evaluation to determine need for mental health unit placement. Patient was seen and evaluated by psychiatry and determined to be a candidate for inpatient psychiatric care. Patient was deemed stable for discharge medically and was transitioned to the mental health unit for further management. Patient should start thiamine, folate, multivitamin while in the mental health unit, as well as to continue CIWA protocol with Ativan as needed and Librium standing. Patient Condition at Discharge: Good Plan - Discharge Summary Discharge Rx Participant: Yes New Discharge Prescriptions: New Ibuprofen [Motrin] 400 mg PO Q6HR PRN tab PRN Reason: Mild Pain Or Fever > 100.5 Discharge Medication List Ibuprofen [Motrin] 400 mg PO Q6HR PRN tab 12/09/24 [Rx] Follow up Appointment(s)/Referral(s): None,Stated [Primary Care Provider] - 1-2 days Patient Instructions/Handouts: Abuse of Alcohol (DC) Discharge/Stand Alone Forms: AA Meetings [place], [facility] Resources, Outpatient Counseling, Inp Substance Abuse Facilities Discharge Disposition: TRANSFER TO PSYCH HOSP/UNIT
[2024-12-09 19:37] VITALS: BP 169/123; PULSE 86; RESP 15; TEMP 98.9
[2024-12-09] MEDS ORDERED: ZOLPIDEM 5 MG TAB PO PRN (20:00)
== END 2024-12-09 20:45 ==
LOC: EC 14:42 → 5NMEDONC 19:15
PROVIDERS: ADMIT Student in an Organized Health Care Education/Training Program; ATTEND Student in an Organized Health Care Education/Training Program
DX: F10.229 Alcohol dependence with intoxication, unspecified (principal); T38.7X6A Underdosing of androgens and anabolic congeners, initial encounter; T43.506A Underdosing of unspecified antipsychotics and neuroleptics, initial encounter; Z91.128 Patient's intentional underdosing of medication regimen for other reason; F60.3 Borderline personality disorder; F29 Unspecified psychosis not due to a substance or known physiological condition; F12.10 Cannabis abuse, uncomplicated; F41.9 Anxiety disorder, unspecified; F32.A Depression, unspecified; I10 Essential (primary) hypertension; G47.9 Sleep disorder, unspecified; F64.0 Transsexualism; Y90.8 Blood alcohol level of 240 mg/100 ml or more; Z91.51 Personal history of suicidal behavior; Z74.3 Need for continuous supervision
CPT/HCPCS: 99284; 36415; 80053; 80048; 83735; 85025; 80306; 80320; 87635; G0378 ×2